=== PATIENT | male | born 1950 | race Caucasian/White ===

== ENCOUNTER → 2016-12-22 | Outpatient (CLI) | payer MEDICARE, OTHER ==
[~2016-12-22] MED LIST: ASP81TEC PO; CALC-706 PO; CPR500T PO; GLUC-153 PO; INSASP10V SC; INSU100V6 SQ; METH454P PO; MULT-963 PO; NOVOLOG SS; OMEP-10 PO; PROM25SU10 RC; SULF-222 PO
--- NOTE | 2016-12-22 18:11 | Diagnostic Imaging Report ---
INDICATION: Cough. COMPARISON: None available. FINDINGS: There is an ill-defined nodular opacity in the lingula. Remainder of the lungs are clear. No pleural effusion or pneumothorax. Normal cardiomediastinal silhouette and pulmonary vasculature. IMPRESSION: 1. Ill-defined nodular focus in the lingula is indeterminate by imaging. Differential considerations include focal nodular atelectasis, nodule of infection, or neoplasm. Followup imaging recommendation is a PA and lateral chest radiograph in four weeks after appropriate medical management to ensure resolution. If the nodule persists at that time, CT of the chest should be performed. Dictated by: Dictated on workstation # [id number]
== END ==
LOC: RAD 17:35
PROVIDERS: ATTEND Internal Medicine
DX: R91.8 Other nonspecific abnormal finding of lung field (principal); R05 Cough
CPT/HCPCS: 71020

== ENCOUNTER → 2017-01-09 | Outpatient (CLI) | payer MEDICARE, OTHER ==
--- NOTE | 2017-01-09 13:15 | Diagnostic Imaging Report ---
INDICATION: Fever and cough. TECHNIQUE: PA and lateral views of the chest were obtained at 1:20 PM. COMPARISON: 12/22/2016. FINDINGS: The heart and mediastinal silhouette are normal in appearance. The lungs show no focal infiltrate. There is no pneumothorax or pleural fluid. The calcified granuloma in the left lung base appears stable compared to the prior study. There is no overt bony abnormality. IMPRESSION: No focal infiltrate, pneumothorax, or pleural fluid. Stable calcified granuloma in the left lung base. Dictated by: Dictated on workstation # [id number]
== END ==
LOC: RAD 12:46
PROVIDERS: ATTEND Internal Medicine
DX: J84.10 Pulmonary fibrosis, unspecified (principal); R05 Cough; R50.9 Fever, unspecified
CPT/HCPCS: 71020

== ENCOUNTER → 2017-03-06 | Outpatient (CLI) | payer MEDICARE, OTHER ==
[2017-03-08 04:23] LABS: LYME AB G M 0.15 Index (0.00-0.89)
[2017-03-08 08:15] LABS: LYME AB INTERP Negative (Negative)
[2017-03-08 16:29] LABS: IGG ROCKY MOUNTAIN SPOTTED FEV <1:16 (<1:16); IGM ROCKY MOUNTAIN SPOTTED FEV <1:10 (<1:10)
== END ==
LOC: LAB 17:01
PROVIDERS: ATTEND Internal Medicine
DX: R53.83 Other fatigue (principal)
CPT/HCPCS: 36415; 86618; 86666; 86668; 86757